=== PATIENT | male | born 1990 | race Caucasian/White ===

== ENCOUNTER 2016-08-01 14:32 | Emergency (ER) | payer OTHER ==
[2016-08-01 14:39] VITALS: BP 150/84; PULSE 110; RESP 16; TEMP 98.4; O2SAT 96
--- NOTE | 2016-08-01 15:38 | EDPHY ---
H & P Smoking Status: Never smoked Time Seen by Provider: 08/01/16 15:22 HPI/ROS: CHIEF COMPLAINT: Finger laceration HISTORY OF PRESENT ILLNESS: This is a 25-year-old male patient presenting emergency room complaining of lacerations to has left 4th and 5th fingers. Patient states 1 hour prior to arrival slipped on wet ground went to catch himself and grabbed onto a metal chain cover cutting his 4th and 5th finger. Patient reports having some difficulty moving the 4th and 5th finger tips. tetanus up-to-date REVIEW OF SYSTEMS: Constitutional: No fever, no chills. Eyes: No discharge. No blurred vision ENT: No sore throat. Cardiovascular: No chest pain, no palpitations. Respiratory: No cough, no shortness of breath. Gastrointestinal: No abdominal pain, no vomiting. Genitourinary: No hematuria. Musculoskeletal: No back pain. Left hand pain with lacerations Skin: No rashes. Neurological: No headache. (Abby Peck) Physical Exam: General Appearance: Alert, no distress. Eyes: Pupils equal and round no pallor or injection. ENT, Mouth: Mucous membranes moist. Respiratory: There are no retractions, lungs are clear to auscultation. Cardiovascular: Regular rate and rhythm. Gastrointestinal: Abdomen is soft and nontender, no masses, bowel sounds normal. Neurological: No focal deficits Skin: Warm and dry, no rashes. Musculoskeletal: Neck is supple nontender. Left 4th and 5th digit lacerations noted deficit in range of motion to 4th and 5th digits Extremities: symmetrical, full range of motion. Psychiatric: Patient is oriented X 3, there is no agitation. (Abby Peck) Constitutional: Initial Vital Signs Temperature (C) 36.9 C 08/01/16 14:38 Heart Rate 110 H 08/01/16 14:38 Respiratory Rate 16 08/01/16 14:38 Blood Pressure 150/84 H 08/01/16 14:38 O2 Sat (%) 96 08/01/16 14:38 O2 Delivery Mode Room Air Allergies/Adverse Reactions: No Known Allergies Allergy (Unverified 08/01/16 14:37) Home Medications: Medication Instructions Recorded Cephalexin [Keflex] 500 mg PO TID #15 cap 08/01/16 Sertraline HCl 08/01/16 oxyCODONE/APAP 5/325 [Percocet 1 - 2 tab PO Q4H PRN #20 tab 08/01/16 5/325 (*)] Medical Decision Making - Diagnostics Imaging Results: Imaging Impressions Hand X-Ray 08/01/16 15:43 Impression: There is no acute osseous abnormality. Procedures: Procedure: Splint placement. A ortho glass volar splint was applied to the left upper extremity by the tech. After application of the splint I returned and re-examined the patient. The splint was adequately immobilizing the joint and distal to the splint the patient's circulation and sensation was intact. ([place] العراقي) Procedure: 4th finger Laceration repair. Verbal consent was obtained from the patient . 2.5 cm linear laceration on the 4th finger. The wound was irrigated. There were deep structures and tendon involved. Superficial skin repaired 5-0 Ethilon #4 sutures placed Fifth finger Laceration repair. 3. cm jagged laceration on 5th finger. The wound was irrigated. There were deep structures and tendon involved. Superficial skin repair using 5-0 Ethilon #3 sutures placed The procedure was performed by myself. A dressing was applied by our EMT. Total 0.5% bupivacaine digital block for both 4th and 5th fingers 8ml (Abby Peck) ED Course/Re-evaluation: Discussed the plan of care the patient: X-ray and, wound irrigation 1630: Discussed patient with Dr. العراقي, consult with Ortho Hand. Dr. Nick will see patient tomorrow morning his office at 0800 NPO after midnight 1645: Discussed discharge instructions with patient, you will present yourself to Dr. Nick office at 8 o'clock morning tomorrow nothing to eat after midnight. Leave dressing and splint on until evaluated by Dr. Nick. Discharge home---> stable. (Abby Peck) Differential Diagnosis: Other differential diagnosis considered but not limited to finger amputation, open finger fracture and avulsion fracture (Abby Peck) Other Provider: I evaluated and participated in the management of the patient. I also evaluated the patient independently. My co-signature indicates that I have reviewed this chart and I agree with the findings and plan of care as documented. My personal H&P findings include: The patient presents to the ED with lacerations to his left 4th and 5th fingers sustained at work. The patient was noted to have complete deficits of his left 4th and 5th FDP tendons on my examination. I spoke with Dr. Tung Nick from Hand surgery. The patient will be advised to be NPO after midnight. He will follow up with Dr. Nick tomorrow for operative repair. The patient will be discharged home on Keflex. The patient did have his lacerations repaired by the nurse practitioner Abby Peck ([place] العراقي) - Data Points Medications Given: Discontinued Medications Cephalexin HCl (Keflex) 500 mg PO EDNOW ONE PRN Reason: Protocol Stop: 08/01/16 16:39 Last Admin: 08/01/16 16:59 Dose: 500 mg Oxycodone/Acetaminophen (Percocet 5/325) 1 tab PO EDNOW ONE Stop: 08/01/16 16:52 Last Admin: 08/01/16 17:02 Dose: 1 tab Departure - Departure Disposition: Home, Routine, Self-Care Clinical Impression: Finger laceration involving tendon Qualifiers: Encounter type: initial encounter Qualified Code(s): S61.219A - Laceration without foreign body of unspecified finger without damage to nail, initial encounter Condition: Good Instructions: Finger Laceration (ED), Tendon Laceration (ED) Additional Instructions: 1. Please contact Dr. Tung Nick office promptly at 8 o'clock in the morning. You will need surgery to repair the flexor tendon lacerations in your 4th and 5th fingers. 2. Nothing to eat or drink after midnight in anticipation of surgery tomorrow. 3. Please keep dressing on your upper extremity with splint applied until seen by Dr. Nick. 4. Antibiotics as directed Referrals: MCKINLEY JACQUES [Other] - As per Instructions Tung Nick MD [Medical Doctor] - As per Instructions Prescriptions: Cephalexin [Keflex] 500 mg PO TID #15 cap oxyCODONE/APAP 5/325 [Percocet 5/325 (*)] 1 - 2 tab PO Q4H PRN #20 tab PRN Reason: Pain, Severe
[2016-08-01] MEDS ORDERED: CEPHALEXIN 500 MG CAP PO ONE (16:38)
[2016-08-01] MEDS ORDERED: OXYCODONE/APAP 5/325 TAB PO ONE (16:51)
== END 2016-08-01 17:19 | disposition home or self-care (01) ==
PROC: 0HQGXZZ Repair Left Hand Skin, External Approach (ICD-10-PCS; principal; 2016-08-01)
DX: S61.215A Laceration without foreign body of left ring finger without damage to nail, initial encounter (principal); S61.217A Laceration without foreign body of left little finger without damage to nail, initial encounter; W45.8XXA Other foreign body or object entering through skin, initial encounter